=== PATIENT | male | born 1990 | race Caucasian/White ===

== ENCOUNTER → 2016-09-09 | Outpatient (CLI) | payer OTHER | END | disposition home or self-care (01) | LOC: CFH 15:31 | PROVIDERS: ATTEND Orthopaedic Surgery | DX: S83.511A Sprain of anterior cruciate ligament of right knee, initial encounter (principal); S83.281A Other tear of lateral meniscus, current injury, right knee, initial encounter; S83.241A Other tear of medial meniscus, current injury, right knee, initial encounter; M71.21 Synovial cyst of popliteal space [Baker], right knee; M21.961 Unspecified acquired deformity of right lower leg; M25.461 Effusion, right knee; X58.XXXA Exposure to other specified factors, initial encounter; Y93.89 Activity, other specified; Y92.89 Other specified places as the place of occurrence of the external cause; Y99.8 Other external cause status ==

== ENCOUNTER 2018-01-05 18:08 | Emergency (ER) | payer OTHER ==
[~2018-01-05] VITALS: Ht 177.8 cm; Wt 71.0 kg
[2018-01-05 18:10] VITALS: BP 125/80
[2018-01-05] MEDS ORDERED: LIDOCAINE-MPF 1%, 5ML ONE (18:20)
[2018-01-05] MEDS ORDERED: LIDOCAINE 1%, 10ML INFIL ONE (18:30)
[2018-01-05] MEDS ORDERED: CEFAZOLIN 1,000 MG ONE (19:35)
[2018-01-05] MEDS ORDERED: BACITRACIN ZINC OINT 500U/GM, 0.9 GM ONE (19:53)
[2018-01-05] MEDS ORDERED: CEFAZOLIN 1,000 MG IM ONE (20:00)
== END 2018-01-05 20:51 | disposition home or self-care (01) ==
LOC: ED 20:15
DX: S63.286A Dislocation of proximal interphalangeal joint of right little finger, initial encounter (principal); S61.214A Laceration without foreign body of right ring finger without damage to nail, initial encounter; V00.131A Fall from skateboard, initial encounter; Y93.89 Activity, other specified; Y92.34 Swimming pool (public) as the place of occurrence of the external cause; Y99.8 Other external cause status
CPT/HCPCS: 12042; 26770; 73130; 96372; 99285; J0690; J3490